=== PATIENT | male | born 1960 | race African-American/Black ===

== ENCOUNTER 2016-12-24 16:21 | Observation (INO) | payer OTHER ==
[~2016-12-24] VITALS: Ht 175.3 cm; Wt 85.0 kg
[2016-12-24] VITALS (8 sets, daily range): BP systolic 128–183; BP diastolic 68–107; PULSE 44–81; RESP 16–18; TEMP 95.6–98.3; O2SAT 96–100
[~2016-12-24 16:21] MED LIST: ZOFR4TAB3 SL
[2016-12-24] MEDS ORDERED: SODIUM CHLORIDE 0.9% FLUSH 10 ML FLUSH IVF PRN (16:45)
[2016-12-24] MEDS ORDERED: SODIUM CHLORID 0.9% 500 ML INJ 500 ML IV ONE (16:45)
[2016-12-24] MEDS ORDERED: ASPIRIN 81 MG CHEW TAB PO ONE (16:45)
--- NOTE | 2016-12-24 16:46 | PD ---
HPI Chief Complaint: Chest Pain Time Seen by Provider: 16:46 Travel History International Travel<30 days: No Contact w/Intl Traveler<30days: No Traveled to known affect area: No History of Present Illness HPI 56-year-old male with no significant medical history presents to the emergency department for evaluation a left-sided chest pain intermittently occurring over the last 3 days. Patient cannot report any exacerbating or alleviating factors. Patient states it starts in his left chest and radiates to his left axilla. He feels as though his heart is pounding and he can "feel the blood pumps through it." Denies any shortness of breath. No lightheaded sensation, nausea, vomiting. Patient has no cardiac history. Cannot recall any family cardiac history. He has no other symptoms reported instant. PFSH Past Medical History Medical History: Denies Significant Hx Diminished Hearing: No Hypertension: Yes Immunizations Current: Yes Social History Alcohol Use: No Tobacco Use: No Substance Use: No Allergies-Medications (Allergen,Severity, Reaction): Coded Allergies: No Known Allergies (Verified , 04/27/16) Reported Meds & Prescriptions Reported Meds & Active Scripts Active Zofran ODT (Ondansetron HCl) 4 Mg Tab 4 Mg SL Q6H PRN FOR NAUSEA/VOMITING Review of Systems Except as stated in HPI: all other systems reviewed are Neg Physical Exam Narrative GENERAL: Well-nourished male patient, in no acute distress SKIN: Focused skin assessment warm/dry. HEAD: Atraumatic. Normocephalic. EYES: Pupils equal and round. No scleral icterus. No injection or drainage. ENT: No nasal bleeding or discharge. Mucous membranes pink and moist. NECK: Trachea midline. No JVD. CARDIOVASCULAR: Bradycardic rate and rhythm. No murmur appreciated. RESPIRATORY: No accessory muscle use. Clear to auscultation. Breath sounds equal bilaterally. GASTROINTESTINAL: Abdomen soft, non-tender, nondistended. Hepatic and splenic margins not palpable. MUSCULOSKELETAL: No obvious deformities. No clubbing. No cyanosis. No edema. NEUROLOGICAL: Awake and alert. No obvious cranial nerve deficits. Motor grossly within normal limits. Normal speech. PSYCHIATRIC: Appropriate mood and affect; insight and judgment normal. Data Data Last Documented VS Vital Signs Date Time Temp Pulse Resp B/P Pulse Ox O2 Delivery O2 Flow Rate FiO2 12/24/16 17:12 72 18 97 Room Air 12/24/16 17:10 133/85 128/83 12/24/16 16:24 98.3 Orders Electrocardiogram (12/24/16 16:45) Basic Metabolic Panel (Bmp) (12/24/16 16:45) Ckmb (Isoenzyme) Profile (12/24/16 16:45) Complete Blood Count With Diff (12/24/16 16:45) Magnesium (Mg) (12/24/16 16:45) Prothrombin Time / Inr (Pt) (12/24/16 16:45) Act Partial Throm Time (Ptt) (12/24/16 16:45) Troponin I (12/24/16 16:45) Lipase (12/24/16 16:45) Chest, Single Ap (12/24/16 16:45) Ecg Monitoring (12/24/16 16:45) Bilateral Bp Monitoring (12/24/16 16:45) Iv Access Insert/Monitor (12/24/16 16:45) Oximetry (12/24/16 16:45) Oxygen Administration (12/24/16 16:45) Aspirin Chew (Aspirin Chew) (12/24/16 16:45) Sodium Chloride 0.9% Flush (Ns Flush) (12/24/16 16:45) Nitroglycerin Sl (Nitrostat Sl) (12/24/16 16:45) Sodium Chlorid 0.9% 500 Ml Inj (Ns 500 M (12/24/16 16:45) CKMB (12/24/16 17:08) CKMB% (12/24/16 17:08) Sodium Chlor 0.9% 1000 Ml Inj (Ns 1000 M (12/24/16 18:15) Admit Order (Ed Use Only) (12/24/16 18:58) Activity Bed Rest With Brp (12/24/16 18:58) Vital Signs (Adult) Q4H (12/24/16 18:58) Cardiac Rhythm .As Directed (12/24/16 18:58) Notify Dr: Other .PRN (12/24/16 18:58) Notify . Parameters (12/24/16 18:58) Resp Oxygen Nasal Cannula (12/24/16 ) Diet Npo (12/25/16 Breakfast) Diet Heart Healthy (12/24/16 Dinner) Ckmb (Isoenzyme) Profile (12/24/16 20:00) Ckmb (Isoenzyme) Profile (12/24/16 23:00) Troponin I (12/24/16 20:00) Troponin I (12/24/16 23:00) Electrocardiogram (12/24/16 20:00) Electrocardiogram (12/24/16 23:00) ^ Obtain (12/24/16 18:58) Sodium Chloride 0.9% Flush (Ns Flush) (12/24/16 19:00) Sodium Chloride 0.9% Flush (Ns Flush) (12/24/16 21:00) Acetaminophen (Tylenol) (12/24/16 19:00) Ondansetron Inj (Zofran Inj) (12/24/16 19:00) Nitroglycerin Sl (Nitrostat Sl) (12/24/16 19:00) Psychological Stress Evaluator / Telemetry NEHA.Q8H (12/24/16 18:58) Ace Bilateral/Knee High NEHA.QSHIFT (12/24/16 18:58) Labs Laboratory Tests Test 12/24/16 17:08 White Blood Count 6.8 TH/MM3 Red Blood Count 5.11 MIL/MM3 Hemoglobin 15.5 GM/DL Hematocrit 47.1 % Mean Corpuscular Volume 92.2 FL Mean Corpuscular Hemoglobin 30.4 PG Mean Corpuscular Hemoglobin 33.0 % Concent Red Cell Distribution Width 13.9 % Platelet Count 263 TH/MM3 Mean Platelet Volume 9.2 FL Neutrophils (%) (Auto) 75.2 % Lymphocytes (%) (Auto) 18.8 % Monocytes (%) (Auto) 4.7 % Eosinophils (%) (Auto) 0.6 % Basophils (%) (Auto) 0.7 % Neutrophils # (Auto) 5.1 TH/MM3 Lymphocytes # (Auto) 1.3 TH/MM3 Monocytes # (Auto) 0.3 TH/MM3 Eosinophils # (Auto) 0.0 TH/MM3 Basophils # (Auto) 0.0 TH/MM3 CBC Comment DIFF FINAL Differential Comment Prothrombin Time 10.7 SEC Prothromb Time International 1.0 RATIO Ratio Activated Partial 27.8 SEC Thromboplast Time Sodium Level 141 MEQ/L Potassium Level 3.5 MEQ/L Chloride Level 108 MEQ/L Carbon Dioxide Level 26.0 MEQ/L Anion Gap 7 MEQ/L Blood Urea Nitrogen 20 MG/DL Creatinine 1.31 MG/DL Estimat Glomerular Filtration 69 ML/MIN Rate Random Glucose 79 MG/DL Calcium Level 9.6 MG/DL Magnesium Level 2.4 MG/DL Total Creatine Kinase 388 U/L Creatine Kinase MB 3.4 NG/ML Creatine Kinase MB % 0.9 % Troponin I LESS THAN 0.02 NG/ML Lipase 215 U/L MDM Medical Decision Making Medical Screen Exam Complete: Yes Emergency Medical Condition: Yes Medical Record Reviewed: Yes Differential Diagnosis Chest wall pain versus ACS versus pleuritic pain versus anxiety Narrative Course 56-year-old male presents to the emergency department for evaluation of left- sided chest pain. Patient appears without distress. Vital signs are stable. EKGs without acute abnormality, reviewed by my attending physician. Troponin is less than 0.02. Patient will be admitted observation of the chest pain center for serial troponins and further evaluation by software qa manager. He agrees with this plan of care. Diagnosis Primary Impression: Chest pain Qualified Code: R07.9 - Chest pain, unspecified type Condition: Stable Zainab Isaac Dec 24, 2016 16:46
[2016-12-24] MEDS: NITROGLYCERIN 0.4 MG SL 25 TABS/BTL SL SCH ×3 (16:50→17:08)
--- NOTE | 2016-12-24 17:22 | RADRPT ---
EXAM DATE/TIME: 12/24/2016 16:58 [facility] COMPARISON: [facility] (AP & LAT), November 08, 2013, 22:51. INDICATIONS : Left sided chest pain. MEDICAL HISTORY : None. SURGICAL HISTORY : None. ENCOUNTER: Initial ACUITY: 3 days PAIN SCORE: 3/10 LOCATION: Left chest FINDINGS: A single view of the chest demonstrates the lungs to be symmetrically aerated without evidence of mas s, infiltrate or effusion. The cardiomediastinal contours are unremarkable. Osseous structures are intact. CONCLUSION: 1. No acute cardiopulmonary findings identified. Boaz Heredia MD on December 24, 2016 at 17:20 Board Certified Radiologist. This report was verified electronically.
[2016-12-24 17:33] LABS: AUTOMATED NEUTROPHIL # 5.1 TH/MM3 (1.8-7.7); BASOPHIL % 0.7 % (0.0-2.0); EOSINOPHIL % 0.6 % (0.0-4.0); HEMATOCRIT 47.1 % (39.0-51.0); HEMO FLAGS DIFF FINAL; LYMPH % 18.8 % (9.0-44.0); LYMPHOCYTE # 1.3 TH/MM3 (1.0-4.8); MEAN CELL VOLUME 92.2 FL (80.0-100.0); MEAN CORPUSCULAR HEMOGLOBIN 30.4 PG (27.0-34.0); MONO % 4.7 % (0.0-8.0); NEUT % 75.2 % (16.0-70.0); PLATELET COUNT 263 TH/MM3 (150-450); RED BLOOD COUNT 5.11 MIL/MM3 (4.50-5.90); RED CELL DISTRIBUTION WIDTH 13.9 % (11.6-17.2); WHITE BLOOD COUNT 6.8 TH/MM3 (4.0-11.0)
[2016-12-24 17:41] LABS: APTT (PATIENT) 27.8 SEC (24.3-30.1); PROTHROMBIN TIME - PATIENT 10.7 SEC (9.8-11.6)
[2016-12-24 18:00] LABS: ANION GAP 7 MEQ/L (5-15); BLOOD UREA NITROGEN 20 MG/DL (7-18); CHLORIDE 108 MEQ/L (98-107); CREATINE KINASE 388 U/L (39-308); GLOMERULAR FILTRATION RATE 69 ML/MIN (>89); MAGNESIUM 2.4 MG/DL (1.5-2.5); POTASSIUM 3.5 MEQ/L (3.5-5.1); SODIUM (NA) 141 MEQ/L (136-145)
[2016-12-24 18:13] LABS: CKMB 3.4 NG/ML (0.5-3.6)
[2016-12-24] MEDS ORDERED: SODIUM CHLOR 0.9% 1000 ML INJ 1,000 ML IV ONE (18:15)
[2016-12-24] MEDS ORDERED: ACETAMINOPHEN 500 MG CPLT PO PRN (19:00)
[2016-12-24] MEDS ORDERED: ONDANSETRON HCL 4 MG/2 ML VIAL IV PRN (19:00)
[2016-12-24] MEDS ORDERED: SODIUM CHLORIDE 0.9% FLUSH 10 ML FLUSH IV FLUSH PRN (19:00)
[2016-12-24] MEDS: NITROGLYCERIN 0.4 MG SL 25 TABS/BTL SL PRN ×3 (19:55→20:08)
[2016-12-24 20:51] LABS: CREATINE KINASE 300 U/L (39-308)
[2016-12-24 21:03] LABS: CKMB 2.5 NG/ML (0.5-3.6)
[2016-12-25] VITALS (7 sets, daily range): BP systolic 140–161; BP diastolic 83–98; PULSE 48–58; RESP 18–56; TEMP 97.6–98.6; O2SAT 96–100
[2016-12-25 00:34] LABS: CREATINE KINASE 258 U/L (39-308)
[2016-12-25 00:46] LABS: CKMB 2.4 NG/ML (0.5-3.6)
[2016-12-25] MEDS: SODIUM CHLORIDE 0.9% FLUSH 10 ML FLUSH IV FLUSH SCH ×2 (02:19→07:55)
--- NOTE | 2016-12-25 10:09 | HHI.HP ---
HPI Primary Care Physician No Primary Care Physician Chief Complaint Chest pain History of Present Illness 56-year-old male with no significant medical history presents to emergency room for further evaluation of chest pain. Onset 4 days ago. Location left inframammary with radiation to back. Characteristic of throbbing and tingling. No associated symptoms. No known precipitating or relieving factors. Duration has been constant. Reticular movement or position may pain better or worse. Deep breathing did not make pain better or worse. No known trauma to area. 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 Review of Systems General: No fatigue,weakness, fever, chills, or recent illness. Other than stated above he has been in his general state of health. HEENT: No POZO, no nasal congestion or drainage, no dysphasia CV: Continues to have chest discomfort as stated above. No palpitations or dizziness. RESP: No SOB, cough, wheeze, recent URI, or history of asthma. GI: No nausea, vomiting, bowel changes, diarrhea, constipation. No change in appetite. : No dysuria, urgency, frequency EXT: No lower leg edema, no paraesthesias MS: No discomfort or change in ROM NEURO: No difficulty with balance, LOC, motor/sensory deficits PSYCH: No anxiety, depression, or situational stress SKIN: No rashes, no concerning lesions Past Family Social History Allergies: Coded Allergies: No Known Allergies (Verified , 04/27/16) Past Medical History None Past Surgical History None Reported Medications Reported Meds & Active Scripts Active None Active Ordered Medications Current Medications Medications (Trade) Dose Ordered Sig/Lou Route Start Time Stop Time Status Last Admin (Tylenol) 500 mg Q4H PRN PO 12/24/16 19:00 (Zofran Inj) 4 mg Q6H PRN IV 12/24/16 19:00 (Nitrostat Sl) 0.4 mg Q5M PRN SL 12/24/16 19:00 12/24/16 20:08 Family History Noncontributory for early onset cardiovascular disease. Social History No known diabetes, hypertension, or hyperlipidemia. Cholesterol panel completed approximately 6 months ago and he was told cholesterol was fine. Lifelong nonsmoker. Denies any alcohol or illegal drug use. Endorses a healthy and active lifestyle cycling and running daily. Recently started a new job with new insurance therefore states he will need to find a new PCP. Past cardiac testing None Physical Exam Vital Signs Vital Signs Date Time Temp Pulse Resp B/P Pulse Ox O2 Delivery O2 Flow Rate FiO2 12/25/16 07:38 98.4 55 18 147/98 100 12/25/16 07:25 51 12/25/16 03:46 98.6 56 56 140/87 98 12/25/16 03:27 48 12/25/16 00:00 96 12/24/16 23:58 95.6 58 16 137/86 100 12/24/16 23:00 44 12/24/16 22:51 98.1 77 18 131/68 98 12/24/16 22:45 21 12/24/16 20:06 50 18 140/74 96 Room Air 12/24/16 20:00 51 16 130/79 98 Room Air 12/24/16 19:46 52 18 154/92 100 Room Air 12/24/16 17:12 72 18 97 Room Air 12/24/16 17:10 18 98 Room Air 12/24/16 17:10 79 133/85 128/83 12/24/16 17:10 96 Room Air 12/24/16 16:24 98.3 81 16 183/107 98 Physical Exam GENERAL: Alert WN, WD, NAD, pleasant, male HEAD: NC, AT EYES: Sclera clear, pupils equal and round ENT: Mucous membranes pink and moist NECK: Supple, no masses, trachea midline CV: RRR, without murmur, rub, gallop, no JVD, S1-S2 no S3-S4. RESP: Clear lungs throughout bilateral, no crackles, wheeze, rhonchi, symmetrical chest rise, nonlabored, able to speak in full sentences ABD: Soft, NT, ND, no masses, positive bowel tones EXT: Pulses +24, no dependent edema MS: Normal tone 4 extremities, nontender, no obvious deformities, full range of motion NEURO: CN II through CN XII grossly intact, motor strength 5/5, gait WNL PSYCH: A+O 3, pleasant affect, appropriate speech, appropriate mood and affect , insight and judgment SKIN: Normal turgor, normal texture, no lesions, no rashes, brisk cap refill, even hair distribution Laboratory Laboratory Tests Test 12/24/16 12/24/16 12/24/16 17:08 20:00 23:45 White Blood Count 6.8 Red Blood Count 5.11 Hemoglobin 15.5 Hematocrit 47.1 Mean Corpuscular Volume 92.2 Mean Corpuscular Hemoglobin 30.4 Mean Corpuscular Hemoglobin 33.0 Concent Red Cell Distribution Width 13.9 Platelet Count 263 Mean Platelet Volume 9.2 Neutrophils (%) (Auto) 75.2 Lymphocytes (%) (Auto) 18.8 Monocytes (%) (Auto) 4.7 Eosinophils (%) (Auto) 0.6 Basophils (%) (Auto) 0.7 Neutrophils # (Auto) 5.1 Lymphocytes # (Auto) 1.3 Monocytes # (Auto) 0.3 Eosinophils # (Auto) 0.0 Basophils # (Auto) 0.0 CBC Comment DIFF FINAL Differential Comment Prothrombin Time 10.7 Prothromb Time International 1.0 Ratio Activated Partial 27.8 Thromboplast Time Sodium Level 141 Potassium Level 3.5 Chloride Level 108 Carbon Dioxide Level 26.0 Anion Gap 7 Blood Urea Nitrogen 20 Creatinine 1.31 Estimat Glomerular Filtration 69 Rate Random Glucose 79 Calcium Level 9.6 Magnesium Level 2.4 Total Creatine Kinase 388 300 258 Creatine Kinase MB 3.4 2.5 2.4 Creatine Kinase MB % 0.9 Troponin I LESS THAN 0.02 LESS THAN 0.02 LESS THAN 0.02 Lipase 215 Result Diagram: 12/24/16 1708 12/24/16 1708 Imaging Last Impressions Chest X-Ray 12/24/16 1645 Signed Impressions: Service Date/Time: Saturday, December 24, 2016 16:58 - CONCLUSION: 1. No acute cardiopulmonary findings identified. Boaz Heredia MD Course EKGs Normal sinus bradycardic rhythm, normal axis, no ST or T-segment changes Assessment and Plan Assessment and Plan #1 Chest painadmitted to chest pain center. Ruled out with 3 sets of EKGs, cardiac enzymes, or monitor overnight. Will be seen and evaluated by Dr. Ghulam Dial and completed a Chidi protocol treadmill stress test. Patient is agreeable to plan of care. Naturally if stress test unremarkable he will be later discharged. Discussed with patient in length chest discomfort most likely musculoskeletal in nature however due to age and never completely formal stress test will proceed with cardiac testing. #2 Musculoskeletal painencourage used a warm heat to area and if pain continues may use [id number] Aleve as needed for pain. #3 Mild Hypertension- amlodipine 5 mg daily prescription given upon discharge, encouraged a low sodium diet. #4 Mild renal insufficiency-discussed importance of new prescription and drinking plenty of fluids daily. Follow up with PCP once new insurance begins. Kimmie Marcelino Dec 25, 2016 10:09
[2016-12-25] MEDS ORDERED: NITROGLYCERIN 0.4 MG SL 25 TABS/BTL SL PRN (10:15)
[2016-12-25] MEDS ORDERED: ACETAMINOPHEN 500 MG CPLT PO PRN (10:15)
[2016-12-25] MEDS ORDERED: ONDANSETRON HCL 4 MG/2 ML VIAL IV PRN (10:15)
[2016-12-25] MEDS ORDERED: SODIUM CHLORIDE 0.9% FLUSH 10 ML FLUSH IV FLUSH PRN (10:15)
--- NOTE | 2016-12-25 12:34 | TR ---
Date Performed: 12/25/2016 Time Performed: 11:21:30 DOCTOR: Ghulam Izquierdo DRUG LIST: CLINICAL HISTORY: REASON FOR TEST: REASON FOR ENDING: OBSERVATION: CONCLUSION: Chidi protocol completed. Stopped sec to exceeding target heart rate and leg fatigue . Maximum IS=189 % Target HR Achieved=85.0% Maximum QS=716/98 Total Exercise Time=9:36. No reprod yecenia st pain. Occassional PVCs. Good exercise tolerance. No st t segment changes to sugg ischemia. Hyperte nsive bp response. Recovery quick and unremarkable, blood pressure improved but still slightly elevat ed. COMMENTS: CONCLUSION: Normal exercise treadmill. No evidence of ischemia.
--- NOTE | 2016-12-25 13:10 | EKG ---
Date Performed: 12/24/2016 Time Performed: 23:27:35 PTAGE: 56 years EKG: SINUS BRADYCARDIA PROLONGED QT INTERVAL ABNORMAL ECG PREVIOUS TRACING : 12/24/2016 23.26 Compared to prior tracing no significant change DOCTOR: Jose Carlos Linder Interpretating Date/Time 12/25/2016 13:08:11
--- NOTE | 2016-12-25 13:12 | HHI.DCPOC ---
Discharge Care Plan Diagnosis: (1) Musculoskeletal chest pain Goals to Promote Your Health * To prevent worsening of your condition and complications * To maintain your health at the optimal level Directions to Meet Your Goals Take your medications as prescribed Follow your dietary instruction Follow activity as directed Keep your appointments as scheduled Take your immunizations and boosters as scheduled If your symptoms worsen call your PCP, if no PCP go to Urgent Care Center or Emergency Room Smoking is Dangerous to Your Health. Avoid second hand smoke Call the 24-hour hour crisis hotline for domestic abuse at Kimmie Marcelino Dec 25, 2016 13:12
--- NOTE | 2016-12-25 13:18 | EKG ---
Date Performed: 12/24/2016 Time Performed: 19:57:37 PTAGE: 56 years EKG: SINUS BRADYCARDIA BORDERLINE ECG INTERPRETATION BASED ON A DEFAULT AGE OF 40 YEARS NO PREVIOUS TRACING DOCTOR: Jose Carlos Linder Interpretating Date/Time 12/25/2016 13:18:16
--- NOTE | 2016-12-25 13:30 | EKG ---
Date Performed: 12/24/2016 Time Performed: 17:07:43 PTAGE: 56 years EKG: Sinus rhythm NONSPECIFIC T-WAVE ABNORMALITY BORDERLINE ECG PREVIOUS TRACING : 04/27/2016 05.04 Compared to prior tracing no significant change DOCTOR: Jose Carlos Linder Interpretating Date/Time 12/25/2016 13:27:47
[2016-12-25] MEDS ORDERED: AMLO5TAB2 PO (14:02)
--- NOTE | 2016-12-25 14:03 | HHI.DCPOC ---
Discharge Care Plan Diagnosis: (1) Mild hypertension (2) Mild renal insufficiency (3) Musculoskeletal chest pain Goals to Promote Your Health * To prevent worsening of your condition and complications * To maintain your health at the optimal level Directions to Meet Your Goals Take your medications as prescribed Follow your dietary instruction Follow activity as directed Keep your appointments as scheduled Take your immunizations and boosters as scheduled If your symptoms worsen call your PCP, if no PCP go to Urgent Care Center or Emergency Room Smoking is Dangerous to Your Health. Avoid second hand smoke Call the 24-hour hour crisis hotline for domestic abuse at Kimmie Marcelino Dec 25, 2016 14:03
[2016-12-25] MEDS ORDERED: SODIUM CHLORIDE 0.9% FLUSH 10 ML FLUSH IV FLUSH SCH (21:00)
[2016-12-26] MEDS ORDERED: ASPIRIN 325 MG TAB PO SCH (09:00)
== END 2016-12-25 14:49 | disposition home or self-care (01) ==
LOC: NEPC 16:21 → NEDA 19:02 → NEPHCDU 22:26
PROVIDERS: ADMIT Internal Medicine Cardiovascular Disease; ATTEND Internal Medicine Cardiovascular Disease
DX: R07.9 Chest pain, unspecified (principal); I10 Essential (primary) hypertension; R20.2 Paresthesia of skin; M79.1 Myalgia; N28.9 Disorder of kidney and ureter, unspecified
CPT/HCPCS: 71010; 80048; 82550; 82552; 83690; 83735; 84484; 85025; 85610; 85730; 93005; 93017; 99285; G0378; J7030; J7040

== ENCOUNTER 2017-06-13 06:38 | Emergency (ER) | payer OTHER ==
[~2017-06-13] VITALS: Ht 175.3 cm; Wt 82.0 kg
[~2017-06-13 06:38] MED LIST changes: +AMLO5TAB2 PO; -ZOFR4TAB3 SL
[2017-06-13 06:39] VITALS: BP 182/102; PULSE 63; RESP 18; TEMP 97.9; O2SAT 100
[2017-06-13] MEDS ORDERED: ROBA500T PO (07:07)
--- NOTE | 2017-06-13 07:08 | PD ---
HPI Chief Complaint: Pain: Acute or Chronic Time Seen by Provider: 07:05 Travel History International Travel<30 days: No Contact w/Intl Traveler<30days: No Traveled to known affect area: No History of Present Illness HPI 56-year-old male presents to the emergency Department with complaint of bilateral shoulder pain since May 10. He says his shoulders pain is secondary to lifting and carrying heavy boxes at work. Denies traumatic injury. Says the pain radiates down both his arms. He denies paresthesias, loss of sensation, decreased range of motion, decreased strength to bilateral upper extremities. Denies fever, vomiting. Denies chest pain, shortness of breath. Has been taking Aleve for symptom management. Pain is worse when he lifts his arms above his head. Patient is better at rest. Pain is to the anterior aspect of both shoulders. Symptoms are mild in severity. Has no other medical complaints. No known allergies. Does not establish primary care provider. No other modifying factors or associated signs and symptoms. PFSH Past Medical History Diminished Hearing: No Hypertension: Yes Immunizations Current: Yes Social History Alcohol Use: No Tobacco Use: No Substance Use: No Allergies-Medications (Allergen,Severity, Reaction): Coded Allergies: No Known Allergies (Verified Adverse Reaction, Unknown, 06/13/17) Reported Meds & Prescriptions Reported Meds & Active Scripts Active Robaxin (Methocarbamol) 500 Mg Tab 500 Mg PO QID PRN Amlodipine (Amlodipine Besylate) 5 Mg Tab 5 Mg PO DAILY Review of Systems Except as stated in HPI: all other systems reviewed are Neg Physical Exam Narrative GENERAL: Well-nourished, well-developed black male patient, in no acute distress SKIN: Warm and dry. HEAD: Atraumatic. Normocephalic. EYES: Pupils equal and round. No scleral icterus. No injection or drainage. ENT: Mucosa pink and moist. Airway patent. NECK: Supple. Trachea midline. CARDIOVASCULAR: Regular rate and rhythm. No murmur appreciated. RESPIRATORY: No accessory muscle use. Clear to auscultation. Breath sounds equal bilaterally. GASTROINTESTINAL: Flat. MUSCULOSKELETAL: Bilateral shoulder with full range of motion; greater than 45 abduction; bilateral shoulders with no obvious deformities, erythema, edema, ecchymosis; shoulders equal; joints stable. 5/5 strength. Bilateral upper extremity supple and non-tense. 2+ radial pulses and sensory intact. No obvious deformities. No clubbing. No cyanosis. No edema. NEUROLOGICAL: Awake and alert. Oriented 3. No obvious cranial nerve deficits. Motor grossly within normal limits. Normal speech. PSYCHIATRIC: Appropriate mood and affect; insight and judgment normal. Data Data Last Documented VS Vital Signs Date Time Temp Pulse Resp B/P (MAP) Pulse Ox O2 Delivery O2 Flow Rate FiO2 06/13/17 06:47 16 06/13/17 06:39 97.9 63 182/102 (128) 100 Orders Orders Ed Discharge Order (06/13/17 07:08) MDM Medical Decision Making Medical Screen Exam Complete: Yes Emergency Medical Condition: Yes Medical Record Reviewed: Yes Differential Diagnosis Arthritis, rotator cuff injury, shoulder pain, less likely fracture, dislocation , joint separation Narrative Course 56-year-old male with bilateral shoulder pain from lifting and carrying heavy boxes at work. Denies traumatic injury. Do not suspect fracture, dislocation, joint separation until imaging is not necessary at this time. She is blood pressures elevated in the emergency department. He has history of hypertension and takes amlodipine 5 mg daily. He has not taken his medication this morning. He says his medication is in his car and He states he will take his medication when he gets into his car. Patient is asymptomatic at this time. Robaxin prescribed for home. Instructed patient to follow-up with primary care provider, orthopedics, and/or his Workmen's Comp. Instructed patient to follow up with primary care provider. Patient verbalizes understanding and agreement with treatment plan. Patient is medically cleared and stable for discharge. Discussed reasons to return to the emergency department. Patient agrees with treatment plan. The patients vital signs are stable and the patient is stable for outpatient follow-up and treatment. Patient discharged home, stable and in no acute distress. Diagnosis Primary Impression: Bilateral shoulder pain Qualified Codes: M25.511 - Pain in right shoulder; M25.512 - Pain in left shoulder Referrals: [facility] Orthopedist Primary Care Physician Patient Instructions: General Instructions, Shoulder Pain (ED) Additional Instructions: Tylenol or ibuprofen as needed and as directed to reduce pain and inflammation Follow-up with primary care provider Follow-up with orthopedics as needed Return to the emergency department immediately with worsening symptoms Med/Other Pt SpecificInfo: Prescription(s) given Scripts Methocarbamol (Robaxin) 500 Mg Tab 500 MG PO QID Y for MUSCLE SPASM, #30 TAB 0 Refills Prov: Beatrice Villanueva 06/13/17 Disposition: 01 DISCHARGE HOME Condition: Stable Beatrice Villanueva Jun 13, 2017 07:08
== END 2017-06-13 07:21 | disposition home or self-care (01) ==
LOC: NEPD 06:38
DX: M25.511 Pain in right shoulder (principal); M25.512 Pain in left shoulder; I10 Essential (primary) hypertension; Z79.899 Other long term (current) drug therapy
CPT/HCPCS: 99283

== ENCOUNTER 2017-08-03 13:15 | Emergency (ER) | payer OTHER ==
[~2017-08-03] VITALS: Ht 175.3 cm; Wt 81.5 kg
[2017-08-03 13:15] VITALS: BP 172/106; PULSE 73; RESP 16; TEMP 98.7; O2SAT 97
[~2017-08-03 13:15] MED LIST changes: +ROBA500T PO
[2017-08-03] MEDS ORDERED: AZIT250T3 PO (13:46)
--- NOTE | 2017-08-03 13:47 | PD ---
HPI Chief Complaint: ENT Complaint Time Seen by Provider: 13:39 Travel History International Travel<30 days: No Contact w/Intl Traveler<30days: No Traveled to known affect area: No History of Present Illness HPI 56-year-old male presents to the emergency Department with complaint of cough, nasal congestion, sore throat times one week. Unknown fevers. Denies body aches, headache, nausea, vomiting, abdominal pain. Denies chest and shortness of breath. No one else with similar symptoms. Has been using [id number] medications for symptom management. Symptoms are mild in severity. No known allergies. Has no other medical complaints. Denies significant past medical history. No primary care provider. No other modifying factors or associated signs and symptoms. PFSH Past Medical History Diminished Hearing: No Hypertension: Yes Immunizations Current: Yes Social History Alcohol Use: No Tobacco Use: No Substance Use: No Allergies-Medications (Allergen,Severity, Reaction): Coded Allergies: No Known Allergies (Verified Adverse Reaction, Unknown, 06/13/17) Reported Meds & Prescriptions Reported Meds & Active Scripts Active Azithromycin 250 Mg Tab 250 Mg PO DIRECTED Take 2 tabs (500 mg) on day 1 then 1 tab daily x 4 days. Amlodipine (Amlodipine Besylate) 5 Mg Tab 5 Mg PO DAILY Review of Systems Except as stated in HPI: all other systems reviewed are Neg Physical Exam Narrative GENERAL: Well-nourished, well-developed male patient, in no acute distress; afebrile, nontoxic-appearing SKIN: Warm and dry. No rash. HEAD: Atraumatic. Normocephalic. EYES: Pupils equal and round. No scleral icterus. No injection or drainage. ENT: Mucosa pink and moist. No erythema or exudates. No uvular edema. No uvular , palatal, or tonsillar deviation. Airway patent. EARS: Bilateral pinnae and external canals appear within normal limits. Bilateral tympanic membranes without erythema, dullness or perforation. NECK: Trachea midline. No lymphadenopathy. CARDIOVASCULAR: Regular rate and rhythm. No murmur appreciated. RESPIRATORY: No accessory muscle use. Clear to auscultation. Breath sounds equal bilaterally. No retractions or tachypnea. GASTROINTESTINAL: Abdomen soft, non-tender, nondistended. Hepatic and splenic margins not palpable. Bowel sounds are active 4 quadrants. MUSCULOSKELETAL: No obvious deformities. No clubbing. No cyanosis. No edema. NEUROLOGICAL: Awake and alert. Oriented 3. No obvious cranial nerve deficits. Motor grossly within normal limits. Normal speech. Moves all extremities. 5/5 strength to all extremities. PSYCHIATRIC: Appropriate mood and affect; insight and judgment normal. Data Data Last Documented VS Vital Signs Date Time Temp Pulse Resp B/P (MAP) Pulse Ox O2 Delivery O2 Flow Rate FiO2 08/03/17 13:15 98.7 73 16 172/106 (128) 97 Room Air Orders Orders Ed Discharge Order (08/03/17 13:47) MDM Medical Decision Making Medical Screen Exam Complete: Yes Emergency Medical Condition: Yes Medical Record Reviewed: Yes Differential Diagnosis Viral illness, upper respiratory infection, influenza, bronchitis Narrative Course 56-year-old male with cough and cold symptoms 1 week patient is afebrile and nontoxic-appearing. Unknown fevers. Denies vomiting. I'll treat the patient with antibiotics secondary to length of illness. Azithromycin prescribed for home. Instructed patient to follow up with primary care provider. Patient verbalizes understanding and agreement with treatment plan. Patient is medically cleared and stable for discharge. Discussed reasons to return to the emergency department. Patient agrees with treatment plan. The patients vital signs are stable and the patient is stable for outpatient follow-up and treatment. Patient discharged home, stable and in no acute distress. Diagnosis Primary Impression: Upper respiratory infection Qualified Codes: J06.9 - Acute upper respiratory infection, unspecified Referrals: [facility] Primary Care Physician Patient Instructions: Cold Symptoms (ED), General Instructions, Safe Use of Cough and Cold Medicines (ED), Upper Respiratory Infection (ED) Departure Forms: Tests/Procedures, Work Release Enter return to work date: Aug 04, 2017 Additional Instructions: Antibiotics as prescribed and complete full course Ibuprofen or Tylenol as instructed and as needed for fever/pain [id number] cough and cold medications as directed and as needed for symptom management Get plenty of sleep/rest Drink plenty of fluids to prevent dehydration; popsicles and Gatorade Use an air humidifier/turn off ceiling fans Follow-up with primary care provider Return immediately to the emergency department with worsening of symptoms Med/Other Pt SpecificInfo: Prescription(s) given Scripts Azithromycin (Azithromycin) 250 Mg Tab 250 MG PO DIRECTED for Infection, #6 TAB 0 Refills Take 2 tabs (500 mg) on day 1 then 1 tab daily x 4 days. Prov: Beatrice Villanueva 08/03/17 Disposition: 01 DISCHARGE HOME Condition: Stable Beatrice Villanueva Aug 03, 2017 13:46
== END 2017-08-03 13:56 | disposition home or self-care (01) ==
LOC: NEPK 13:15
DX: J06.9 Acute upper respiratory infection, unspecified (principal); I10 Essential (primary) hypertension; Z79.899 Other long term (current) drug therapy
CPT/HCPCS: 99283

== ENCOUNTER 2017-12-10 13:12 | Emergency (ER) | payer OTHER ==
[~2017-12-10] VITALS: Ht 175.3 cm; Wt 70.0 kg
[~2017-12-10 13:12] MED LIST changes: +AZIT250T3 PO; -ROBA500T PO
[2017-12-10 13:15] VITALS: BP 160/84; PULSE 91; RESP 16; TEMP 98.4; O2SAT 96
[2017-12-10] MEDS ORDERED: TETANUS/DIPHTHERIA TOXOID ADULT 0.5 ML VIAL IM ONE (13:30)
--- NOTE | 2017-12-10 13:34 | PD ---
HPI . Laceration Chief Complaint: Laceration/Skin Injury Time Seen by Provider: 13:27 Travel History International Travel<30 days: No Contact w/Intl Traveler<30days: No Traveled to known affect area: No History of Present Illness HPI Patient presents with a chief complaint of a laceration of his left hand. The laceration occurred about an hour ago. He was at work trying to cut some tape when he missed and cut his thumb. Tetanus is not up-to-date. He states that he has good movement of his thumb and no numbness or tingling distal to the injury. [facility] Past Medical History Medical History: Denies Significant Hx Diminished Hearing: No Hypertension: Yes Immunizations Current: Yes Social History Alcohol Use: No Tobacco Use: No Substance Use: No Allergies-Medications (Allergen,Severity, Reaction): Coded Allergies: No Known Allergies (Verified Adverse Reaction, Unknown, 06/13/17) Reported Meds & Prescriptions Reported Meds & Active Scripts Active Azithromycin 250 Mg Tab 250 Mg PO DIRECTED Take 2 tabs (500 mg) on day 1 then 1 tab daily x 4 days. Amlodipine (Amlodipine Besylate) 5 Mg Tab 5 Mg PO DAILY Review of Systems Except as stated in HPI: all other systems reviewed are Neg Physical Exam Narrative GENERAL: Awake and alert and in no acute distress. SKIN: Warm and dry. He has a laceration on the base of the left thumb. The wound edges are well approximated. There is no significant bleeding. It does continue to use. HEAD: Normocephalic/atraumatic. EYES: Pupils are equal. Extraocular movements are intact. NECK: Normal range of motion. CARDIOVASCULAR: Regular rate and rhythm. RESPIRATORY: Nonlabored respirations. MUSCULOSKELETAL: Atraumatic. Normal movement of the left thumb. NEUROLOGICAL: Nonfocal. Normal sensation of the left thumb. PSYCHIATRIC: Appropriate mood and affect. Data Data Last Documented VS Vital Signs Date Time Temp Pulse Resp B/P (MAP) Pulse Ox O2 Delivery O2 Flow Rate FiO2 12/10/17 13:15 98.4 91 16 160/84 (109) 96 Orders Orders Tetanus/Diphtheria Tox Adult (Tetanus/Di (12/10/17 13:30) Wound Care (12/10/17 13:27) MDM Medical Decision Making Medical Screen Exam Complete: Yes Emergency Medical Condition: Yes Differential Diagnosis Differential diagnosis includes but is not limited to skin laceration, muscular laceration, tendon laceration, neurovascular laceration. Narrative Course This patient presents with a laceration of the left thumb. Wound edges are well approximated. His tetanus will be updated. The wound will be cleaned and dressed. Diagnosis Primary Impression: Laceration of left hand Qualified Codes: S61.412A - Laceration without foreign body of left hand, initial encounter Patient Instructions: General Instructions, Laceration (DC) Additional Instructions: Remove dressing tomorrow. Then wash it twice daily with soap and water and apply an antibiotic ointment. Disposition: 01 DISCHARGE HOME Condition: Stable Randi Seth MD Dec 10, 2017 13:34
== END 2017-12-10 13:55 | disposition home or self-care (01) ==
LOC: NEPD 13:12
DX: S61.412A Laceration without foreign body of left hand, initial encounter (principal); W26.8XXA Contact with other sharp object(s), not elsewhere classified, initial encounter; Y93.89 Activity, other specified; Y99.0 Civilian activity done for income or pay; Z23 Encounter for immunization
CPT/HCPCS: 90471; 90714